=== PATIENT | female | born 1945 ===

== ENCOUNTER 2019-06-05 06:15 | Day surgery (SDC) | payer OTHER ==
[~2019-06-05 06:15] MED LIST: ALENDRONATE SOD70 MG PO; AVENTYL HCL25 MG PO; BANOPHEN50 MG PO; CILOSTAZOL50 MG PO; CLONAZEPAM1 MG PO; COZAAR50 MG PO; DALMANE30 MG PO; FOLIC PO; GABAPEN PO; ISORBIDE PO; LASIX40 MG PO; LEVAQUIN500 MG PO; LIPITOR20 MG PO; NABUMETONE750 MG PO; PENTOXIFYLLINE400 MG PO; PLAVIX75 MG PO; RISPERDAL0.5 MG; TIROSINT25 MCG PO; [UNRECOGNIZED DRUG - OTHER] PO; [UNRECOGNIZED DRUG - OTHER] PO
[2019-06-05] MEDS ORDERED: TYLENOL-CODEINE1 TA1 PO (12:37)
[2019-06-05] MEDS ORDERED: CIPRO250 MG/5 M PO (12:37)
== END 2019-06-05 15:40 | disposition home or self-care (01) ==
LOC: CIR.AMB 06:15 → ADM 08:30 → CIR.AMB 08:30
DX: N32.81 Overactive bladder (principal); R39.15 Urgency of urination
CPT/HCPCS: 64581; C1778

== ENCOUNTER 2019-06-19 04:49 | Day surgery (SDC) | payer OTHER ==
[~2019-06-19 04:49] MED LIST changes: +CIPRO250 MG/5 M PO; +TYLENOL-CODEINE1 TA1 PO
== END 2019-06-19 10:30 | disposition home or self-care (01) ==
LOC: CIR.AMB 04:49 → ADM 09:15 → CIR.AMB 10:30
DX: N39.41 Urge incontinence (principal); N32.81 Overactive bladder
CPT/HCPCS: 64590; C1778